=== PATIENT | male | born 1930 | race Caucasian/White ===

== ENCOUNTER 2016-05-30 14:26 | Emergency (ER) | payer MEDICARE ==
[~2016-05-30] VITALS: Ht 172.7 cm; Wt 91.0 kg
[~2016-05-30 14:26] MED LIST: ASPI81TA82 PO; CARV12.5 PO; CHLO10CA17 PO; DICL75 PO; ERGO50000 PO; EXTR500C PO; FLOV110A INH; LEVA500T PO; MECL-62 PO; METR-1 PO; PAXI20TA26 PO; RANT150EF PO; TRAM50 PO; ZOCO40TA PO
[2016-05-30 14:29] VITALS: BP 179/81; PULSE 82; RESP 15; TEMP 98.2; O2SAT 95
--- NOTE | 2016-05-30 15:13 | PD ---
HPI Chief Complaint: Edema Time Seen by Provider: 15:13 Travel History International Travel<30 days: No Contact w/Intl Traveler<30days: No Traveled to known affect area: No History of Present Illness HPI 86-year-old male with coronary artery disease, CHF, hypertension, arthritis, presents to emergency department for evaluation left upper extremity swelling. Patient states that initially health of his arms were swollen but the right one went down. The left foot continues to be swollen and last night he noticed that he wasn't feeling well. Arm felt kind of burning and he didn't feel quite himself. He states he's been more weak. He has been having a gradual worsening shortness of breath with activity. Denies any chest pain. Has not been febrile or chill. Denies a nausea, vomiting, diarrhea. Has no other symptoms to report. Patient does see a ell tutor at [facility]. He refers to him as "Spike" but cannot recall his last name. PFSH Past Medical History Arthritis: Yes Asthma: Yes Autoimmune Disease: No Blood Disorders: No Anxiety: Yes Depression: No Cancer: No High Cholesterol: Yes Chemotherapy: No Chest Pain: Yes (5 YEARS AGO) Diabetes: No Diminished Hearing: No Endocrine: No Gastrointestinal Disorders: Yes (INGUINAL HERNIA REPAIR IN 1975) Headaches: Yes (ARTHRITIC HEADACHE FOR MANY YEARS, 24 HOURS A DAY) Hypertension: Yes Immune Disorder: No Musculoskeletal: Yes Neurologic: No Radiation Therapy: No Past Surgical History Abdominal Surgery: Yes (GALLBLADDER REMOVED) Cholecystectomy: Yes Eye Surgery: Yes (BILAT CATARACTS) Neurologic Surgery: Yes Other Surgery: Yes Social History Alcohol Use: No Tobacco Use: No Substance Use: No Allergies-Medications (Allergen,Severity, Reaction): Coded Allergies: No Known Allergies (Verified , 05/30/16) Reported Meds & Prescriptions Reported Meds & Active Scripts Active Levaquin 500 Mg Tab (Levofloxacin) 500 Mg Tab 500 Mg PO DAILY Flagyl (Metronidazole) 500 Mg Tab 500 Mg PO Q8HR Reported Extra Strength Acetaminop (Acetaminophen) 500 Mg Cap 500 Mg PO QID PRN Flovent Hfa (Fluticasone Propionate) 110 Mcg Aer 1 Puff INH BID Vitamin D / Drisdol 50,000 Units (Ergocalciferol) 50,000 Units Cap 2 Cap PO Q7D Meclizine Hcl (Meclizine HCl) 25 Mg Tab 12.5 Mg PO DAILY Aspir-81 (Aspirin) 81 Mg Tab 81 Mg PO DAILY Diclofenac Sodium 75 Mg Tab 75 Mg PO NEEDED PRN Coreg 12.5 mg (Carvedilol) 12.5 Mg Tab 12.5 Mg PO BID Ultram (Tramadol HCl) 50 Mg Tab 50 Mg PO Q6HPRN FOR PAIN Librium (Chlordiazepoxide) 10 Mg Cap 20 Mg PO DAILY Zantac (Ranitidine HCl) 150 Mg Tab 150 Mg PO BID Zocor 40 mg (Simvastatin) 40 Mg Tab 40 Mg PO HS Paxil (Paroxetine HCl) 20 Mg Tab 20 Mg PO DAILY Review of Systems Except as stated in HPI: all other systems reviewed are Neg Physical Exam Narrative GENERAL: Well-nourished elderly male patient, in no acute distress SKIN: Warm and dry. HEAD: Atraumatic. Normocephalic. EYES: Pupils equal and round. No scleral icterus. No injection or drainage. ENT: No nasal bleeding or discharge. Mucous membranes pink and moist. NECK: Trachea midline. No JVD. CARDIOVASCULAR: Regular rate and rhythm. No murmur appreciated. RESPIRATORY: No accessory muscle use. Diminished, likely due to poor inspiratory effort. Breath sounds equal bilaterally. GASTROINTESTINAL: Abdomen soft, non-tender, nondistended. Hepatic and splenic margins not palpable. MUSCULOSKELETAL: No obvious deformities. No clubbing. No cyanosis. There is moderate edema of the left hand. The hand remained warm. Patient's rings are unable to be removed due to the swelling. Distal pulses are palpable. Cap refill is within normal limits. NEUROLOGICAL: Awake and alert. No obvious cranial nerve deficits. Motor grossly within normal limits. Normal speech. PSYCHIATRIC: Appropriate mood and affect; insight and judgment normal. Data Data Last Documented VS Vital Signs Date Time Temp Pulse Resp B/P Pulse Ox O2 Delivery O2 Flow Rate FiO2 05/30/16 18:45 67 173/77 96 05/30/16 18:23 20 Room Air 05/30/16 16:22 97.9 Orders Electrocardiogram (05/30/16 15:11) Basic Metabolic Panel (Bmp) (05/30/16 15:11) B-Type Natriuretic Peptide (05/30/16 15:11) Ckmb (Isoenzyme) Profile (05/30/16 15:11) Complete Blood Count With Diff (05/30/16 15:11) Magnesium (Mg) (05/30/16 15:11) Prothrombin Time / Inr (Pt) (05/30/16 15:11) Act Partial Throm Time (Ptt) (05/30/16 15:11) Troponin I (05/30/16 15:11) Chest, Single Ap (05/30/16 15:11) Us Arm Venous Doppler (05/30/16 ) Electrocardiogram (05/30/16 15:52) Labs Laboratory Tests Test 05/30/16 16:00 White Blood Count 7.1 TH/MM3 Red Blood Count 4.74 MIL/MM3 Hemoglobin 13.5 GM/DL Hematocrit 40.1 % Mean Corpuscular Volume 84.6 FL Mean Corpuscular Hemoglobin 28.4 PG Mean Corpuscular Hemoglobin 33.6 % Concent Red Cell Distribution Width 13.7 % Platelet Count 205 TH/MM3 Mean Platelet Volume 8.1 FL Neutrophils (%) (Auto) 75.5 % Lymphocytes (%) (Auto) 14.2 % Monocytes (%) (Auto) 7.5 % Eosinophils (%) (Auto) 2.4 % Basophils (%) (Auto) 0.4 % Neutrophils # (Auto) 5.4 TH/MM3 Lymphocytes # (Auto) 1.0 TH/MM3 Monocytes # (Auto) 0.5 TH/MM3 Eosinophils # (Auto) 0.2 TH/MM3 Basophils # (Auto) 0.0 TH/MM3 CBC Comment DIFF FINAL Differential Comment Prothrombin Time 11.4 SEC Prothromb Time International 1.0 RATIO Ratio Activated Partial 25.9 SEC Thromboplast Time Sodium Level 143 MEQ/L Potassium Level 3.7 MEQ/L Chloride Level 107 MEQ/L Carbon Dioxide Level 29.4 MEQ/L Anion Gap 7 MEQ/L Blood Urea Nitrogen 21 MG/DL Creatinine 0.87 MG/DL Estimat Glomerular Filtration 84 ML/MIN Rate Random Glucose 117 MG/DL Calcium Level 8.7 MG/DL Magnesium Level 2.1 MG/DL Total Creatine Kinase 63 U/L Troponin I LESS THAN 0.02 NG/ML B-Type Natriuretic Peptide 54 PG/ML MDM Medical Decision Making Medical Screen Exam Complete: Yes Emergency Medical Condition: Yes Medical Record Reviewed: Yes Differential Diagnosis DVT versus cellulitis versus lymphedema versus electrolyte abnormality Narrative Course 86-year-old male presents to emergency department for evaluation. Patient appears overall well without distress. He does have swelling of the left upper extremity, primarily in the hand. Workup is initiated in triage. With the medical bed becomes available, patient will be transferred and care assumed by that provider. Condition: Stable Lennie Farfan May 30, 2016 15:13
--- NOTE | 2016-05-30 15:33 | RADRPT ---
EXAM DATE/TIME: 05/30/2016 15:09 [facility] COMPARISON: CHEST SINGLE AP, October 06, 2014, 5:48. INDICATIONS : Short of breath, anterior chest discomfort, swollen left hand MEDICAL HISTORY : Congestive heart failure. kyphotic SURGICAL HISTORY : None. ENCOUNTER: Initial ACUITY: 2 days PAIN SCORE: 3/10 LOCATION: Bilateral chest FINDINGS: A single view of the chest demonstrates the lungs to be symmetrically aerated without evidence of mas s, infiltrate or effusion. The cardiomediastinal contours are unremarkable. Osseous structures are intact. Again noted is hypoaeration with mild compressive atelectasis in the bases. CONCLUSION: No acute disease. No significant change has occurred. Garrison Sumner MD on May 30, 2016 at 15:30 Board Certified Radiologist. This report was verified electronically.
[2016-05-30 16:22] VITALS: BP 165/74; PULSE 75; RESP 20; TEMP 97.9; O2SAT 94
[2016-05-30 16:37] LABS: AUTOMATED NEUTROPHIL # 5.4 TH/MM3 (1.8-7.7); BASOPHIL % 0.4 % (0.0-2.0); EOSINOPHIL # 0.2 TH/MM3 (0-0.4); EOSINOPHIL % 2.4 % (0.0-4.0); HEMATOCRIT 40.1 % (39.0-51.0); HEMO FLAGS DIFF FINAL; LYMPH % 14.2 % (9.0-44.0); MEAN CELL VOLUME 84.6 FL (80.0-100.0); MEAN CORPUSCULAR HEMOGLOBIN 28.4 PG (27.0-34.0); MEAN CORPUSCULAR HGB CONC 33.6 % (32.0-36.0); MONO % 7.5 % (0.0-8.0); NEUT % 75.5 % (16.0-70.0); PLATELET COUNT 205 TH/MM3 (150-450); RED BLOOD COUNT 4.74 MIL/MM3 (4.50-5.90); RED CELL DISTRIBUTION WIDTH 13.7 % (11.6-17.2); WHITE BLOOD COUNT 7.1 TH/MM3 (4.0-11.0)
[2016-05-30 16:48] LABS: APTT (PATIENT) 25.9 SEC (24.3-30.1); PROTHROMBIN TIME - PATIENT 11.4 SEC (9.8-11.6)
[2016-05-30 16:54] LABS: ANION GAP 7 MEQ/L (5-15); BICARBONATE 29.4 MEQ/L (21.0-32.0); BLOOD UREA NITROGEN 21 MG/DL (7-18); CHLORIDE 107 MEQ/L (98-107); GLOMERULAR FILTRATION RATE 84 ML/MIN (>89); MAGNESIUM 2.1 MG/DL (1.5-2.5); POTASSIUM 3.7 MEQ/L (3.5-5.1); SODIUM (NA) 143 MEQ/L (136-145)
[2016-05-30 16:59] LABS: CREATINE KINASE 63 U/L (39-308)
--- NOTE | 2016-05-30 16:59 | PD ---
Physical Exam Date Seen by Provider: May 30, 2016 Time Seen by Provider: 16:30 Narrative Patient was seen in triage and had preliminary evaluation performed by Lennie carson PA-C. Patient has had ongoing chronic swelling in the left hand off and on for approximately one month. Patient felt it was worse today and is had tightness in the rings on his pinky and ring finger. Patient denies chest pain , shortness of breath, or other constitutional symptoms. EKG was performed, as well as labs ordered including CBC, CMP, cardiac panel, proBNP and chest x-ray. Ultrasound of the left upper extremity is ordered as well. Patient is stable upon arrival to [facility]. Data Data Last Documented VS Vital Signs Date Time Temp Pulse Resp B/P Pulse Ox O2 Delivery O2 Flow Rate FiO2 05/30/16 18:45 67 173/77 96 05/30/16 18:23 20 Room Air 05/30/16 16:22 97.9 Orders Electrocardiogram (05/30/16 15:11) Basic Metabolic Panel (Bmp) (05/30/16 15:11) B-Type Natriuretic Peptide (05/30/16 15:11) Ckmb (Isoenzyme) Profile (05/30/16 15:11) Complete Blood Count With Diff (05/30/16 15:11) Magnesium (Mg) (05/30/16 15:11) Prothrombin Time / Inr (Pt) (05/30/16 15:11) Act Partial Throm Time (Ptt) (05/30/16 15:11) Troponin I (05/30/16 15:11) Chest, Single Ap (05/30/16 15:11) Us Arm Venous Doppler (05/30/16 ) Electrocardiogram (05/30/16 15:52) Ct Thorax/ Chest W Iv Contrast (05/30/16 21:04) Iohexol 350 Inj (Omnipaque 350 Inj) (05/30/16 21:31) Labs Laboratory Tests Test 05/30/16 16:00 White Blood Count 7.1 TH/MM3 Red Blood Count 4.74 MIL/MM3 Hemoglobin 13.5 GM/DL Hematocrit 40.1 % Mean Corpuscular Volume 84.6 FL Mean Corpuscular Hemoglobin 28.4 PG Mean Corpuscular Hemoglobin 33.6 % Concent Red Cell Distribution Width 13.7 % Platelet Count 205 TH/MM3 Mean Platelet Volume 8.1 FL Neutrophils (%) (Auto) 75.5 % Lymphocytes (%) (Auto) 14.2 % Monocytes (%) (Auto) 7.5 % Eosinophils (%) (Auto) 2.4 % Basophils (%) (Auto) 0.4 % Neutrophils # (Auto) 5.4 TH/MM3 Lymphocytes # (Auto) 1.0 TH/MM3 Monocytes # (Auto) 0.5 TH/MM3 Eosinophils # (Auto) 0.2 TH/MM3 Basophils # (Auto) 0.0 TH/MM3 CBC Comment DIFF FINAL Differential Comment Prothrombin Time 11.4 SEC Prothromb Time International 1.0 RATIO Ratio Activated Partial 25.9 SEC Thromboplast Time Sodium Level 143 MEQ/L Potassium Level 3.7 MEQ/L Chloride Level 107 MEQ/L Carbon Dioxide Level 29.4 MEQ/L Anion Gap 7 MEQ/L Blood Urea Nitrogen 21 MG/DL Creatinine 0.87 MG/DL Estimat Glomerular Filtration 84 ML/MIN Rate Random Glucose 117 MG/DL Calcium Level 8.7 MG/DL Magnesium Level 2.1 MG/DL Total Creatine Kinase 63 U/L Troponin I LESS THAN 0.02 NG/ML B-Type Natriuretic Peptide 54 PG/ML [facility] Medical Record Reviewed: Yes Supervised Visit with MACIEJ: Yes Differential Diagnosis Left upper extremity swelling. Possible DVT. Possible SVC. Narrative Course Patient is stable upon exam. Rings are removed from the left hand with ring cutter 2. This is performed without incident. Rings are given to the patient's daughter for safe keeping. EKG shows no acute changes. Chest x-ray shows no acute changes compared to previous. CBC is unremarkable. CMP shows normal electrolytes. Creatinine of 0.87. BUN was 21. Troponin less than 0.02. BNP is 54. Coags are normal with a PT of 11.4. INR 1.0. PTT 25.9. Patient discussed with Dr. Wong and seen with him as well. Ultrasound of the left upper extremity. Left arm ultrasound is unremarkable for acute process per radiology. Patient was discussed with Dr. Wong, who recommended a CT to verify no tumor or outlet syndrome. Chest CT is negative for any type of impingement to the subclavian artery or vein. All labs, ultrasound, and CT are negative for causes of the swelling in the left arm. Patient is recommended to follow with his primary care physician next several days to follow-up on the left arm swelling and possible causes. Patient may return to emergency Department with any worsening symptoms as needed. Diagnosis Primary Impression: Left arm swelling Referrals: Primary Care Physician Patient Instructions: Edema (ED), General Instructions Additional Instruction: All labs, ultrasound, and CT are negative for causes of the swelling in the left arm. Patient is recommended to follow with his primary care physician next several days to follow-up on the left arm swelling and possible causes. Patient may return to emergency Department with any worsening symptoms as needed. Disposition: 01 DISCHARGE HOME Condition: Stable Segundo Ace May 30, 2016 16:59
[2016-05-30 18:23] VITALS: BP 184/87; PULSE 68; RESP 20; O2SAT 95
[2016-05-30 18:45] VITALS: BP 173/77; PULSE 67; O2SAT 96
--- NOTE | 2016-05-30 19:49 | PD ---
Data Data Last Documented VS Vital Signs Date Time Temp Pulse Resp B/P Pulse Ox O2 Delivery O2 Flow Rate FiO2 05/30/16 18:45 67 173/77 96 05/30/16 18:23 20 Room Air 05/30/16 16:22 97.9 Orders Electrocardiogram (05/30/16 15:11) Basic Metabolic Panel (Bmp) (05/30/16 15:11) B-Type Natriuretic Peptide (05/30/16 15:11) Ckmb (Isoenzyme) Profile (05/30/16 15:11) Complete Blood Count With Diff (05/30/16 15:11) Magnesium (Mg) (05/30/16 15:11) Prothrombin Time / Inr (Pt) (05/30/16 15:11) Act Partial Throm Time (Ptt) (05/30/16 15:11) Troponin I (05/30/16 15:11) Chest, Single Ap (05/30/16 15:11) Us Arm Venous Doppler (05/30/16 ) Electrocardiogram (05/30/16 15:52) Labs Laboratory Tests Test 05/30/16 16:00 White Blood Count 7.1 TH/MM3 Red Blood Count 4.74 MIL/MM3 Hemoglobin 13.5 GM/DL Hematocrit 40.1 % Mean Corpuscular Volume 84.6 FL Mean Corpuscular Hemoglobin 28.4 PG Mean Corpuscular Hemoglobin 33.6 % Concent Red Cell Distribution Width 13.7 % Platelet Count 205 TH/MM3 Mean Platelet Volume 8.1 FL Neutrophils (%) (Auto) 75.5 % Lymphocytes (%) (Auto) 14.2 % Monocytes (%) (Auto) 7.5 % Eosinophils (%) (Auto) 2.4 % Basophils (%) (Auto) 0.4 % Neutrophils # (Auto) 5.4 TH/MM3 Lymphocytes # (Auto) 1.0 TH/MM3 Monocytes # (Auto) 0.5 TH/MM3 Eosinophils # (Auto) 0.2 TH/MM3 Basophils # (Auto) 0.0 TH/MM3 CBC Comment DIFF FINAL Differential Comment Prothrombin Time 11.4 SEC Prothromb Time International 1.0 RATIO Ratio Activated Partial 25.9 SEC Thromboplast Time Sodium Level 143 MEQ/L Potassium Level 3.7 MEQ/L Chloride Level 107 MEQ/L Carbon Dioxide Level 29.4 MEQ/L Anion Gap 7 MEQ/L Blood Urea Nitrogen 21 MG/DL Creatinine 0.87 MG/DL Estimat Glomerular Filtration 84 ML/MIN Rate Random Glucose 117 MG/DL Calcium Level 8.7 MG/DL Magnesium Level 2.1 MG/DL Total Creatine Kinase 63 U/L Troponin I LESS THAN 0.02 NG/ML B-Type Natriuretic Peptide 54 PG/ML [facility] Supervised Visit with MACIEJ: Yes Narrative Course I, Dr. Wong, have reviewed the advance practice practitioner's documentation and am in agreement, met with the patient face to face, made the diagnosis, and the medical decision making was done by me. See his note for further details. Briefly this is an 86-year-old male who presents for evaluation of left arm swelling for 2 weeks. Patient had intermittent right arm swelling which has resolved. Today he was unable to take the ring off of his left hand and noticed even more left hand swelling. He is having some mild pain in the arm. No chest pain or dyspnea. No history of DVT or PE. No known history of any cancer. Chest x-ray shows no acute disease. There are no signs of infection on physical exam. Distal pulses are brisk and equal bilaterally. All compartments in the left upper extremity are soft. Left upper extremity ultrasound ordered to rule out DVT. Condition: Stable Jean Wong MD May 30, 2016 19:49
--- NOTE | 2016-05-30 20:47 | RADRPT ---
EXAM DATE/TIME: 05/30/2016 19:10 [facility] COMPARISON: No previous studies available for comparison. INDICATIONS : Left hand swelling. MEDICAL HISTORY : Hypercholesterolemia. Hypertension. Headaches. Chest pain. Asthma. Diarrhea. Arthritis. Anxiety. SURGICAL HISTORY : Cholecystectomy. Inguinal hernia repair. Right hip replacement. Bilateral cataract removal. ENCOUNTER: Initial ACUITY: 4 - 6 days PAIN SCORE: 0/10 LOCATION: Left arm. FINDINGS: There is spontaneous flow documented in the brachial, basilic, cephalic, axillary, and subclavian vei ns. The vessels are compressible and augmentation response is documented. No filling defects are se en. The flow is phasic with respiration. Direction of flow in the jugular vein is caudal. CONCLUSION: Normal examination. Piyush Sin MD on May 30, 2016 at 20:44 Board Certified Radiologist. This report was verified electronically.
[2016-05-30] MEDS ORDERED: IOHEXOL 350 MG/ML 10 ML VIAL (for RAD DIAG) IV ONE (21:31)
--- NOTE | 2016-05-30 22:16 | RADRPT ---
EXAM DATE/TIME: 05/30/2016 21:28 [facility] COMPARISON: No previous studies available for comparison. INDICATIONS : Left arm swelling. Rule out thoracic outlet syndrome. IV CONTRAST: 67 cc Omnipaque 350 (iohexol) IV RADIATION DOSE: 8.25 CTDIvol (mGy) MEDICAL HISTORY : Arthritis. Hypercholesterolemia. SURGICAL HISTORY : Cholecystectomy. Inguinal hernia repair.Right hip replacement. ENCOUNTER: Initial ACUITY: 1 day PAIN SCALE: 3/10 LOCATION: Left arm and chest TECHNIQUE: Volumetric scanning of the chest was performed. Using automated exposure control and adjustment of t he mA and/or kV according to patient size, radiation dose was kept as low as reasonably achievable to obtain optimal diagnostic quality images. FINDINGS: There is some atelectasis or scarring at the right lung base. Calcified hilar lymph nodes are present on the right. Minimal linear parenchymal scarring also present at the bases. No pleural or pericardi al effusion. No hilar, mediastinal or axillary adenopathy. On CT no impingement on the subclavian artery or vein is identified. No acute bony abnormalities. CONCLUSION: 1. No impingement identified on the subclavian artery or vein. Remote granulomatous disease. Atelecta sis and scarring at the lung bases. Piyush Sin MD on May 30, 2016 at 22:10 Board Certified Radiologist. This report was verified electronically.
--- NOTE | 2016-05-31 14:25 | EKG ---
Date Performed: 05/30/2016 Time Performed: 15:52:25 PTAGE: 86 years EKG: Sinus rhythm WITH OCCASIONAL SUPRAVENTRICULAR PREMATURE COMPLEXES MODERATE INTRAVENTRICULAR CONDUCTION DELAY Nons pecific T wave flattening Compared to the previous tracing, the PVCs have resolved but there is othe rwise no significant serial change BORDERLINE ECG PREVIOUS TRACING : 05/30/2016 15.52 DOCTOR: Mali Avila Interpretating Date/Time 05/31/2016 14:25:26
--- NOTE | 2016-05-31 14:25 | EKG ---
Date Performed: 05/30/2016 Time Performed: 15:51:43 PTAGE: 86 years EKG: Sinus rhythm WITH FREQUENT VENTRICULAR PREMATURE COMPLEXES MODERATE INTRAVENTRICULAR CONDUCTION DELAY Nonspecific T wave changes Compared to the previous tracing, PVCs are new. There has been some variation of a n onspecific T wave changes. ABNORMAL RHYTHM ECG PREVIOUS TRACING : 10/06/2014 04.51 DOCTOR: Mali Avila Interpretating Date/Time 05/31/2016 14:24:52
== END 2016-05-30 23:12 | disposition home or self-care (01) ==
LOC: NEPC 14:26
DX: M79.89 Other specified soft tissue disorders (principal); I10 Essential (primary) hypertension; E78.00 Pure hypercholesterolemia, unspecified; I50.9 Heart failure, unspecified; I49.3 Ventricular premature depolarization
CPT/HCPCS: 71010; 71260; 80048; 82550; 83735; 83880; 84484; 85025; 85610; 85730; 93005; 93971; 99285; Q9967

== ENCOUNTER 2017-03-10 01:10 | Emergency (ER) | payer MEDICARE ==
[~2017-03-10] VITALS: Ht 172.7 cm; Wt 95.1 kg
[2017-03-10 01:15] VITALS: BP 144/72; PULSE 94; RESP 24; TEMP 97.8; O2SAT 95
[2017-03-10 01:50] VITALS: BP 193/98; PULSE 93; RESP 20; O2SAT 95
[2017-03-10 02:20] VITALS: BP 176/82; PULSE 80; RESP 20; O2SAT 96
--- NOTE | 2017-03-10 02:23 | PD ---
HPI Chief Complaint: Chest Pain Time Seen by Provider: 02:19 Travel History International Travel<30 days: No Contact w/Intl Traveler<30days: No Traveled to known affect area: No History of Present Illness HPI The patient is an 87-year-old male that ate some spicy barbecue food tonight and then began feeling pain in his abdomen. He started belching and the pain got slightly worse but I'll only 1 away. The abdominal pain never went up into the chest. It started at about 8 PM tonight. He had slight nausea without vomiting. He does have a history of congestive heart failure and heart disease. He is a [facility] patient of Dr. Kvng cortez. FOR[facility]LY [facility], LATER [facility] Past Medical History Arthritis: Yes Asthma: Yes Autoimmune Disease: No Blood Disorders: No Anxiety: Yes Depression: No Cancer: No High Cholesterol: Yes Chemotherapy: No Chest Pain: Yes (5 YEARS AGO) Diabetes: No Diminished Hearing: No Endocrine: No Gastrointestinal Disorders: Yes (INGUINAL HERNIA REPAIR IN 1975) Headaches: Yes Hypertension: Yes Immune Disorder: No Musculoskeletal: Yes Neurologic: No Radiation Therapy: No Past Surgical History Abdominal Surgery: Yes (GALLBLADDER REMOVED) Cholecystectomy: Yes Eye Surgery: Yes (BILAT CATARACTS) Joint Replacement: Yes (RT HIP REPLACEMENT 1995) Neurologic Surgery: Yes Other Surgery: Yes Social History Alcohol Use: No Tobacco Use: No Substance Use: No Allergies-Medications (Allergen,Severity, Reaction): Coded Allergies: No Known Allergies (Verified Adverse Reaction, Unknown, 03/10/17) Reported Meds & Prescriptions Reported Meds & Active Scripts Active Reported Simvastatin 40 Mg Tab 40 Mg PO HS Zantac (Ranitidine HCl) 150 Mg Tab 150 Mg PO BID Paxil (Paroxetine HCl) 10 Mg Tab 20 Mg PO DAILY Diclofenac Sodium DR (Diclofenac Sodium) 75 Mg Tabdr 75 Mg PO DAILY Meclizine 25 (Meclizine HCl) 25 Mg Tab 25 Mg PO DAILY Flovent Hfa 10.6 GM Inh (Fluticasone Propionate) 44 Mcg/Act Inh 2 Puff INH BID Use daily at the same time. Ultram (Tramadol HCl) 50 Mg Tab 50 Mg PO BID PRN Chlordiazepoxide HCl 10 Mg Capsule 10 Mg PO DAILY Coreg (Carvedilol) 12.5 Mg Tab 12.5 Mg PO BID Aspirin Low Dose (Aspirin) 81 Mg Chew 81 Mg CHEW DAILY Review of Systems Except as stated in HPI: all other systems reviewed are Neg Physical Exam Narrative GENERAL: The patient is alert, oriented 3 in no apparent distress. His vital signs show initial blood pressure 144/72 with respirations 24 and otherwise are normal. SKIN: Focused skin assessment warm/dry. HEAD: Atraumatic. Normocephalic. EYES: Pupils equal and round. No scleral icterus. No injection or drainage. ENT: No nasal bleeding or discharge. Mucous membranes pink and moist. NECK: Trachea midline. No JVD. CARDIOVASCULAR: Regular rate and rhythm except for occasional PVC. No murmur appreciated. RESPIRATORY: No accessory muscle use. Clear to auscultation. Breath sounds equal bilaterally. GASTROINTESTINAL: Abdomen soft, non-tender, nondistended. Hepatic and splenic margins not palpable. No guarding or rebound is present. MUSCULOSKELETAL: No obvious deformities. No clubbing. No cyanosis. No edema. NEUROLOGICAL: Awake and alert. No obvious cranial nerve deficits. Motor grossly within normal limits. Normal speech. PSYCHIATRIC: Appropriate mood and affect; insight and judgment normal. Data Data Last Documented VS Vital Signs Date Time Temp Pulse Resp B/P (MAP) Pulse Ox O2 Delivery O2 Flow Rate FiO2 03/10/17 03:24 82 20 163/86 (111) 96 Nasal Cannula 2.00 03/10/17 01:15 97.8 Orders Orders Complete Blood Count With Diff (03/10/17 02:19) Comprehensive Metabolic Panel (03/10/17 02:19) Lipase (03/10/17 02:19) Urinalysis - C+S If Indicated (03/10/17 02:19) Iv Access Insert/Monitor (03/10/17 02:19) Ecg Monitoring (03/10/17 02:19) Oximetry (03/10/17 02:19) Pantoprazole Inj (Protonix Inj) (03/10/17 02:30) Sodium Chloride 0.9% Flush (Ns Flush) (03/10/17 02:30) Famotidine Inj (Pepcid Inj) (03/10/17 02:30) Troponin I (03/10/17 02:19) Labs Laboratory Tests Test 03/10/17 02:25 03/10/17 02:45 White Blood Count 8.3 TH/MM3 Red Blood Count 4.80 MIL/MM3 Hemoglobin 13.8 GM/DL Hematocrit 40.5 % Mean Corpuscular Volume 84.5 FL Mean Corpuscular Hemoglobin 28.8 PG Mean Corpuscular Hemoglobin Concent 34.1 % Red Cell Distribution Width 13.4 % Platelet Count 175 TH/MM3 Mean Platelet Volume 8.1 FL Neutrophils (%) (Auto) 84.1 % Lymphocytes (%) (Auto) 9.2 % Monocytes (%) (Auto) 4.5 % Eosinophils (%) (Auto) 1.8 % Basophils (%) (Auto) 0.4 % Neutrophils # (Auto) 7.0 TH/MM3 Lymphocytes # (Auto) 0.8 TH/MM3 Monocytes # (Auto) 0.4 TH/MM3 Eosinophils # (Auto) 0.1 TH/MM3 Basophils # (Auto) 0.0 TH/MM3 CBC Comment DIFF FINAL Differential Comment Blood Urea Nitrogen 16 MG/DL Creatinine 1.10 MG/DL Random Glucose 125 MG/DL Total Protein 6.7 GM/DL Albumin 3.3 GM/DL Calcium Level 8.5 MG/DL Alkaline Phosphatase 113 U/L Aspartate Amino Transf (AST/SGOT) 20 U/L Alanine Aminotransferase (ALT/SGPT) 35 U/L Total Bilirubin 0.5 MG/DL Sodium Level 141 MEQ/L Potassium Level 3.8 MEQ/L Chloride Level 104 MEQ/L Carbon Dioxide Level 30.3 MEQ/L Anion Gap 7 MEQ/L Estimat Glomerular Filtration Rate 64 ML/MIN Troponin I LESS THAN 0.02 NG/ML Lipase 145 U/L Urine Color YELLOW Urine Turbidity CLEAR Urine pH 7.0 Urine Specific [place] 1.010 Urine Protein NEG mg/dL Urine Glucose (UA) NEG mg/dL Urine Ketones NEG mg/dL Urine Occult Blood SMALL Urine Nitrite NEG Urine Bilirubin NEG Urine Leukocyte Esterase NEG Urine RBC 4-9 /hpf Urine WBC 0-2 /hpf Urine Squamous Epithelial Cells 0-5 /hpf Urine Bacteria NONE /hpf Microscopic Urinalysis Comment CULT NOT INDICATED MDM Medical Decision Making Medical Screen Exam Complete: Yes Emergency Medical Condition: Yes Medical Record Reviewed: Yes Interpretation(s) The EKG shows sinus rhythm with a rate of 87 and occasional supraventricular premature complexes and ventricular premature complexes. The CBC is normal except for 84% neutrophils. The complete metabolic profile shows a GFR 64, glucose 125 and albumin 3.3 but is otherwise normal. The lipase is normal. The troponin I is normal. Urinalysis shows small occult blood with 4-9 red cells but is otherwise normal and culture is not indicated. Differential Diagnosis Acute coronary syndrome-unlikely, reflux esophagitis, ulcer pain, pancreatitis Narrative Course The patient appears to have reflux esophagitis. The pain is suggestive of reflux esophagitis and never reached the chest. Plan: The patient is given prescriptions for omeprazole and Zantac. Diagnosis Primary Impression: Reflux esophagitis Additional Instructions: Take the ranitidine twice daily as you have been. The omeprazole is taken once daily. Follow-up with your primary care physician. Elevate the head of your bed slightly so that the acid in her stomach has an appeal climbed to the esophagus. Med/Other Pt SpecificInfo: Prescription(s) given Scripts Ranitidine (Zantac) 150 Mg Tab 150 MG PO BID for Reduce Stomach Acid, #60 TAB 0 Refills Prov: José Miguel Mei MD 03/10/17 Omeprazole (Omeprazole) 20 Mg Tab 20 MG PO DAILY, #30 TAB 0 Refills Prov: José Miguel Mei MD 03/10/17 Disposition: 01 DISCHARGE HOME Condition: Stable José Miguel Mei MD Mar 10, 2017 02:23
[2017-03-10] MEDS ORDERED: ZANT150T2 PO ×2 (02:28→03:52)
[2017-03-10] MEDS ORDERED: PAXI10TA8 PO (02:28)
[2017-03-10] MEDS ORDERED: CHLO10CA5 PO (02:28)
[2017-03-10] MEDS ORDERED: ASPI81CH6 CHEW (02:28)
[2017-03-10] MEDS ORDERED: DICL75TA PO (02:28)
[2017-03-10] MEDS ORDERED: SIMV40TA PO (02:28)
[2017-03-10] MEDS ORDERED: TRAM50 PO (02:28)
[2017-03-10] MEDS ORDERED: CARV12.5 PO (02:28)
[2017-03-10] MEDS ORDERED: MECL1TAB42 PO (02:28)
[2017-03-10] MEDS ORDERED: FLUTI44I INH (02:28)
[2017-03-10] MEDS ORDERED: FAMOTIDINE 20 MG/2 ML VIAL IV PUSH ONE (02:30)
[2017-03-10] MEDS ORDERED: PANTOPRAZOLE SODIUM 40 MG VIAL IVP ONE (02:30)
[2017-03-10] MEDS ORDERED: SODIUM CHLORIDE 0.9% FLUSH 10 ML FLUSH IV FLUSH PRN (02:30)
[2017-03-10 02:39] LABS: BASOPHIL % 0.4 % (0.0-2.0); EOSINOPHIL # 0.1 TH/MM3 (0-0.4); EOSINOPHIL % 1.8 % (0.0-4.0); HEMATOCRIT 40.5 % (39.0-51.0); HEMO FLAGS DIFF FINAL; LYMPH % 9.2 % (9.0-44.0); LYMPHOCYTE # 0.8 TH/MM3 (1.0-4.8); MEAN CELL VOLUME 84.5 FL (80.0-100.0); MEAN CORPUSCULAR HEMOGLOBIN 28.8 PG (27.0-34.0); MEAN CORPUSCULAR HGB CONC 34.1 % (32.0-36.0); MONO % 4.5 % (0.0-8.0); NEUT % 84.1 % (16.0-70.0); PLATELET COUNT 175 TH/MM3 (150-450); RED CELL DISTRIBUTION WIDTH 13.4 % (11.6-17.2); WHITE BLOOD COUNT 8.3 TH/MM3 (4.0-11.0)
[2017-03-10 02:47] LABS: CHLORIDE 104 MEQ/L (98-107); POTASSIUM 3.8 MEQ/L (3.5-5.1); SODIUM (NA) 141 MEQ/L (136-145)
[2017-03-10 02:49] LABS: BLOOD, URINE SMALL (NEG); GLUCOSE,URINE NEG (NEG); KETONE, URINE NEG (NEG); NITRITE,URINE NEG (NEG)
[2017-03-10 02:51] LABS: ANION GAP 7 MEQ/L (5-15); BICARBONATE 30.3 MEQ/L (21.0-32.0)
[2017-03-10 02:52] LABS: BLOOD UREA NITROGEN 16 MG/DL (7-18)
[2017-03-10 02:54] LABS: ALT (GPT) 35 U/L (12-78); AST (GOT) 20 U/L (15-37)
[2017-03-10 02:55] LABS: GLOMERULAR FILTRATION RATE 64 ML/MIN (>89)
[2017-03-10 02:56] LABS: TOTAL BILIRUBIN ADULT 0.5 MG/DL (0.2-1.0)
[2017-03-10 02:57] LABS: ALKALINE PHOSPHATASE 113 U/L (45-117)
[2017-03-10 02:57] LABS: URINE COLOR YELLOW (YELLW/STRAW)
[2017-03-10 02:58] LABS: COMMENT (UR) CULT NOT INDICATED; CULTURE IF INDICATED CULT NOT INDICATED; SQUAMOUS EPITHELIAL CELL URINE 0-5 /hpf (0-5); WBC, URINE 0-2 /hpf (0-5)
[2017-03-10 03:24] VITALS: BP 163/86; PULSE 82; RESP 20; O2SAT 96
[2017-03-10] MEDS ORDERED: OMEP20TA93 PO (03:52)
[2017-03-10 04:17] VITALS: BP 158/74
--- NOTE | 2017-03-10 18:07 | EKG ---
Date Performed: 03/10/2017 Time Performed: 02:06:43 PTAGE: 87 years EKG: Sinus rhythm . VENTRICULAR PREMATURE COMPLEXES WITH OCCASIONAL SUPRAVENTRICULAR PREMATURE COMPLEXES ABNORMAL ECG NO PREVIOUS TRACING DOCTOR: Malia Chase Interpretating Date/Time 03/10/2017 18:05:55
== END 2017-03-10 04:20 | disposition home or self-care (01) ==
LOC: PHED 01:10
DX: K21.0 Gastro-esophageal reflux disease with esophagitis (principal); R11.0 Nausea; R94.31 Abnormal electrocardiogram [ECG] [EKG]; I10 Essential (primary) hypertension; E78.00 Pure hypercholesterolemia, unspecified; Z86.79 Personal history of other diseases of the circulatory system; Z87.39 Personal history of other diseases of the musculoskeletal system and connective tissue; Z87.09 Personal history of other diseases of the respiratory system; Z86.59 Personal history of other mental and behavioral disorders; Z87.19 Personal history of other diseases of the digestive system
CPT/HCPCS: 80053; 81001; 83690; 84484; 85025; 93005; 96361; 96374; 96375; 99284; C9113

== ENCOUNTER 2017-05-27 20:28 | Emergency (ER) | payer MEDICARE ==
[~2017-05-27] VITALS: Ht 172.7 cm; Wt 90.4 kg
[~2017-05-27 20:28] MED LIST changes: +ASPI81CH6 CHEW; -ASPI81TA82 PO; -CHLO10CA17 PO; +CHLO10CA5 PO; -DICL75 PO; +DICL75TA PO; -ERGO50000 PO; -EXTR500C PO; -FLOV110A INH; +FLUTI44I INH; -LEVA500T PO; -MECL-62 PO; +MECL1TAB42 PO; -METR-1 PO; +OMEP20TA93 PO; +PAXI10TA8 PO; -PAXI20TA26 PO; -RANT150EF PO; +SIMV40TA PO; +ZANT150T2 PO; -ZOCO40TA PO
[2017-05-27 20:30] VITALS: BP 149/67; PULSE 84; RESP 22; TEMP 98.3; O2SAT 96
[2017-05-27] MEDS ORDERED: GABA300C5 PO (20:51)
[2017-05-27] MEDS ORDERED: LISI-515 PO (20:51)
[2017-05-27] MEDS ORDERED: TRAM50TA PO (21:45)
[2017-05-27] MEDS ORDERED: PRED50 PO (21:45)
[2017-05-27] MEDS ORDERED: ACYC-101 PO (21:45)
--- NOTE | 2017-05-27 21:47 | PD ---
HPI Chief Complaint: Skin Problem Time Seen by Provider: 21:37 Travel History International Travel<30 days: No Contact w/Intl Traveler<30days: No Traveled to known affect area: No History of Present Illness HPI The patient is an 87-year-old male that noticed a rash today consistent with shingles. It is around T11 and goes on the left side from back to front not crossing midline. He states the rash is painful. He states that he has had the shingles vaccination 2 years ago. He denies any fever, cough or shortness of breath this time. He does have a history of COPD. He has taken tramadol in the past with good results. PFSH Past Medical History Arthritis: Yes Asthma: Yes Autoimmune Disease: No Blood Disorders: No Anxiety: Yes Depression: No Cancer: No Cardiovascular Problems: Yes (CHF) High Cholesterol: Yes Chemotherapy: No Chest Pain: Yes (5 YEARS AGO) Diabetes: No Diminished Hearing: No Endocrine: No Gastrointestinal Disorders: Yes (INGUINAL HERNIA REPAIR IN 1975) Headaches: Yes Hypertension: Yes Immune Disorder: No Musculoskeletal: Yes Neurologic: No Respiratory: Yes (CPAP at night ) Radiation Therapy: No Tetanus Vaccination: < 5 Years Influenza Vaccination: Yes Past Surgical History Abdominal Surgery: Yes (GALLBLADDER REMOVED) Cholecystectomy: Yes Eye Surgery: Yes (BILAT CATARACTS) Joint Replacement: Yes (RT HIP REPLACEMENT 1995) Neurologic Surgery: Yes Other Surgery: Yes Social History Alcohol Use: No Tobacco Use: No Substance Use: No Allergies-Medications (Allergen,Severity, Reaction): Coded Allergies: No Known Allergies (Verified Adverse Reaction, Unknown, 05/27/17) Reported Meds & Prescriptions Reported Meds & Active Scripts Active Zantac (Ranitidine HCl) 150 Mg Tab 150 Mg PO BID Reported Lisinopril 20 Mg Tab 20 Mg PO DAILY Paxil (Paroxetine HCl) 10 Mg Tab 20 Mg PO DAILY Diclofenac Sodium DR (Diclofenac Sodium) 75 Mg Tabdr 75 Mg PO DAILY Ultram (Tramadol HCl) 50 Mg Tab 50 Mg PO BID PRN Gabapentin 300 Mg Cap 300 Mg PO TID Review of Systems Except as stated in HPI: all other systems reviewed are Neg Physical Exam Narrative GENERAL: Well-nourished, well-developed, elderly, alert and oriented patient in moderate apparent distress with his shingles discomfort. His vital signs show blood pressure 149/67 but otherwise normal. SKIN: Focused skin assessment warm/dry. There is an erythematous, macular/ papular rash with a few vesicles consistent with herpes zoster located at approximately the left T11 dermatome. HEAD: Normocephalic. EYES: No scleral icterus. No injection or drainage. NECK: Supple, trachea midline. No JVD or lymphadenopathy. CARDIOVASCULAR: Regular rate and rhythm without murmurs, gallops, or rubs. RESPIRATORY: Breath sounds equal bilaterally. No accessory muscle use. GASTROINTESTINAL: Abdomen soft, non-tender, nondistended. MUSCULOSKELETAL: No cyanosis, or edema. BACK: Nontender without obvious deformity. No CVA tenderness. Data Data Last Documented VS Vital Signs Date Time Temp Pulse Resp B/P (MAP) Pulse Ox O2 Delivery O2 Flow Rate FiO2 05/27/17 20:30 98.3 84 22 149/67 (94) 96 MDM Medical Decision Making Medical Screen Exam Complete: Yes Emergency Medical Condition: Yes Medical Record Reviewed: Yes Differential Diagnosis Herpes zoster, allergic reaction-unlikely Narrative Course The patient has a herpes zoster rash. Almost nothing else is consistent with this rash except herpes zoster. Plan: The patient will given prednisone for 6 days along with Zovirax. He will get tramadol for pain. Diagnosis Primary Impression: Herpes zoster Additional Instructions: The prednisone is one tablet daily for 5 days. The tramadol is one tablet every 4 hours as needed for pain. The Zovirax is one tablet 5 times daily for 7 days. Follow-up with your primary care physician Med/Other Pt SpecificInfo: Prescription(s) given Scripts Tramadol (Tramadol) 50 Mg Tab 50 MG PO Q4H Y for PAIN, #36 TAB 0 Refills Prov: José Miguel Mei MD 05/27/17 Acyclovir (Zovirax) 800 Mg Tab 800 MG PO 5 TIMES A DAY for Mgmt Viral Infection for 7 Days, TAB 0 Refills Prov: José Miguel Mei MD 05/27/17 Prednisone (Prednisone) 50 Mg Tab 50 MG PO DAILY for 5 Days, #5 TAB 0 Refills Prov: José Miguel Mei MD 05/27/17 Disposition: 01 DISCHARGE HOME Condition: Stable José Miguel Mei MD May 27, 2017 21:46
[2017-05-27] MEDS ORDERED: predniSONE 20 MG TAB PO ONE (22:00)
[2017-05-27] MEDS ORDERED: ACYCLOVIR 800 MG TAB PO ONE (22:00)
== END 2017-05-27 22:24 | disposition home or self-care (01) ==
LOC: PHEFT 20:28
DX: B02.9 Zoster without complications (principal); I11.0 Hypertensive heart disease with heart failure; I50.9 Heart failure, unspecified; E78.00 Pure hypercholesterolemia, unspecified; J44.9 Chronic obstructive pulmonary disease, unspecified; F41.9 Anxiety disorder, unspecified
CPT/HCPCS: 99284; J7512

== ENCOUNTER 2017-12-07 19:53 | Observation (INO) ==
[2017-12-07 20:08] VITALS: RESP 18
--- NOTE | 2017-12-07 21:21 | ED ---
HPI General Chief Complaint: Fall Stated Complaint: Fall/ Time Seen by Provider: 12/07/17 20:38 Source: patient and family Mode of arrival: ambulatory Limitations: no limitations History of Present Illness HPI narrative: 87-year-old male who presents after a possible syncopal event that occurred at 1900 today. His daughter witnessed him fall backwards without tripping while standing in the grass shortly after he exited the backseat of a car. Although there was no loss of consciousness immediately after the fall the patient does not remember any of the events leading up to the fall or the fall itself. After being helped up off the ground he walked into the house with minimal assistance although his daughter notes that his gait was somewhat unstable at that time. He sat in a chair for about half an hour to 45 minutes and his daughter notes that he exhibited short-term memory loss as well as repetitive questioning. Patient denies any pain; no chest pain no neck or back pain and no pain in his joints or extremities. He describes having a chronic daily headache that has been present for the past 20 years however it is not worse than usual at this time. He sustained a superficial skin tear of the left olecranon. He has a history of congestive heart failure but neither he nor his family know his last ejection fraction. He is compliant with his medications. However he notes that he took double his typical dose of meclizine (25 mg rather than 12.5 mg) both yesterday and today. Patient denies any sensation of dizziness or vertigo either at the time of the fall or now. Family did not observe any signs or symptoms of stroke; no slurred speech, no facial droop, no unilateral arm or leg weakness, no numbness or tingling in extremities, no trouble swallowing. There was no seizure activity observed. complaint: loss of consciousness Related Data Home Medications Medication Instructions Recorded Confirmed meclizine 25 mg PO DAILY PRN 12/07/17 12/07/17 tramadol 50 mg PO QID 12/07/17 12/07/17 Allergies Allergy/AdvReac Type Severity Reaction Status Date / Time No Known Allergies Allergy Verified 12/07/17 20:02 Review of Systems ROS: all other systems reviewed are negative ENT Denies vertigo and Denies neck pain Cardiovascular Denies chest pain, Denies palpitations and Denies dyspnea on exertion Respiratory Denies hemoptysis and Denies dyspnea Gastrointestinal Denies nausea and Denies vomiting Genitourinary Denies difficulty urinating and Denies urinary incontinence Musculoskeletal Reports abnormal gait and Denies back pain Integumentary/Breasts Comments: Skin tear, shingles rash Neurologic Denies vertigo, Reports syncope, Reports headache(s) and Reports lack of coordination [facility] Medical History Medical History Arthritis (Acute) High cholesterol (Acute) Hypertension (Acute) Vertigo (Acute) Surgical History Surgical History Hx of cholecystectomy (Acute) Hx of tonsillectomy (Acute) Social History Social History Substance History: No History of Abuse Second Hand Smoke Exposure: No Smoking Status: Never smoker How Often Do You Have a Drink Containing Alcohol: Monthly or less Recent Travel in [facility] within the Last 8 Weeks: No Recent Out of Country Travel within the Last 8 Weeks: No Immunization History Tetanus Immunization: <5 Years Hx Influenza Vaccine This Season: Yes Exam Narrative Exam Narrative: GENERAL: 87-year-old male resting peacefully on stretcher reclining at approximately 35 angle, family members at bedside (including daughter and grandson) SKIN: Focused skin assessment warm/dry. Superficial skin tear overlying left olecranon. Not amendable to primary repair. No gross contamination or foreign bodies in wound. Dressed with Tegaderm bandage. HEAD: Atraumatic. Normocephalic. No trauma visible above the level the clavicles. EYES: Pupils equal and round. No scleral icterus. No injection or drainage. No nystagmus. ENT: No nasal bleeding or discharge. Mucous membranes pink and moist. Normal tympanic membranes bilaterally with no rupture or hemotympanum. No clear bloody drainage from either ear. NECK: Trachea midline. No JVD. No midline cervical tenderness able to rotate neck greater than 60 left and right. CARDIOVASCULAR: Regular rate and rhythm. No murmur appreciated. Equal 2+ pulses in radial and dorsalis pedis. Distant heart sounds. RESPIRATORY: No accessory muscle use. Clear to auscultation. Breath sounds equal bilaterally. No bibasilar rales. No rhonchi. No wheezing. GASTROINTESTINAL: Abdomen soft, non-tender, nondistended. Hepatic and splenic margins not palpable. No pulsatile mass palpable. MUSCULOSKELETAL: No obvious deformities. No clubbing. No cyanosis. No edema. NEUROLOGICAL: Awake and alert. No obvious cranial nerve deficits. Motor grossly within normal limits. Normal speech. PSYCHIATRIC: Appropriate mood and affect; insight and judgment normal. Course Reevaluation(s) Reevaluation #1: Patient stable in the ED. Rested quietly on stretcher throughout stay with no further complaints. I was able to stand patient up from bed and I watched him ambulate with a steady gait while using a single cane. There is no evidence of truncal ataxia. 1244 informed family of findings and plan for admission given that patient is [place] syncope rule positive (in setting of his CHF and abnormal ECG) the family and the patient are agreeable with plan. Time: 00:44 Consultations Consultation #1: [facility] medicine (Vladimir): discussed case at [id number] and explained my concern that patient had syncopal event in setting of history of CHF. He thinks that patient can likely be discharged home in the morning after evaluation by Dr Richmond. He recommends admitting patient for evaluation by Dr Richmond. Initial Documented Vital Signs Temperature 98.5 F 12/07/17 20:02 Pulse Rate 85 12/07/17 20:02 Respiratory Rate 18 12/07/17 20:02 Blood Pressure 190/74 H 12/07/17 20:02 Pulse Oximetry 96 12/07/17 20:02 Last Documented Vital Signs Temperature 98.5 F 12/07/17 20:02 Pulse Rate 70 12/07/17 22:05 Respiratory Rate 18 12/07/17 22:05 Blood Pressure 188/91 H 12/07/17 22:05 Pulse Oximetry 97 12/07/17 22:05 Medical Decision Making MDM Narrative Medical decision making narrative: Given that the patient had a probable syncopal episode and he meets [place] syncope rule criteria I believe that admission is most appropriate in this setting. He did not describe any chest pain nor anginal equivalents that might suggest ACS. Did not appear to be in respiratory distress. Head no signs or symptoms of stroke. Given his age will perform CT of head to rule out intracranial bleed. He has no midline cervical tenderness, is able to rotate his neck greater than 60 left and right , and has no paresthesias in the upper extremities nor any focal neurological deficits; I think CT cervical spine is lower yield in this case given that the patient can provide a reliable report of his symptoms and is not intoxicated. Differential Diagnosis Differential Diagnosis: Head bleed versus concussion versus mild TBI versus ACS versus acute CHF versus pneumonia versus electrolyte disorder. Medical Records Medical records reviewed: Yes I reviewed the patient's medical records. Multiple ED visits and hospital admissions over the past several years as recorded in the hospital record however none particularly pertinent to the patient's current chief complaint today. His most recent visit was for a shingles outbreak on his back. Lab Data Lab results reviewed: Yes I reviewed the patient's lab results. Lab results narrative: Troponin negative electrolytes and CBC unremarkable mild abnormalities that are not diagnostic for patient's chief complaint of syncope. Result diagrams: 12/07/17 21:45 12/07/17 21:45 Lab Results 12/07/17 12/07/17 12/07/17 Range/Units 21:45 21:45 21:45 CBC w Diff Auto diff final WBC 6.5 (4.0-11.0) th/mm3 RBC 4.94 (4.50-5.90) mil/mm3 Hgb 14.4 (13.0-17.0) gm/dL Hct 42.4 (39.0-51.0) % MCV 85.7 (80.0-100.0) fL MCH 29.1 (27.0-34.0) pg MCHC 34.0 (32.0-36.0) % RDW 13.9 (11.6-17.2) % Plt Count 177 (150-450) th/mm3 MPV 8.5 (7.0-11.0) fL Neut % (Auto) 75.2 H (16.0-70.0) % Lymph % (Auto) 15.4 (9.0-44.0) % [place] % (Auto) 6.2 (0.0-8.0) % Eos % (Auto) 2.6 (0.0-4.0) % Baso % (Auto) 0.6 (0.0-2.0) % Neut # (Auto) 4.9 (1.8-7.7) th/mm3 Lymph # (Auto) 1.0 (1.0-4.8) th/mm3 [place] # (Auto) 0.4 (0.0-0.9) th/mm3 Eos # (Auto) 0.2 (0.0-0.4) th/mm3 Baso # (Auto) 0.0 (0.0-0.2) th/mm3 WBC Differential . Differential Comment . Sodium 139 (136-145) meq/L Potassium 4.0 (3.5-5.1) meq/L Chloride 102 (98-107) meq/L Carbon Dioxide 34.2 H (21.0-32.0) meq/L Anion Gap 3 L (5-15) meq/L BUN 17 (7-18) mg/dL Creatinine 0.84 (0.60-1.30) mg/dL Estimated GFR 87 L (>89) mL/min Random Glucose 100 (74-106) mg/dL Calcium 8.7 (8.5-10.1) mg/dL Total Bilirubin 0.4 (0.2-1.0) mg/dL AST 19 (15-37) U/L ALT 24 (12-78) U/L Alkaline Phosphatase 123 H (45-117) U/L Lactate Dehydrogenase 174 (87-241) U/L Troponin I Less than 0.02 L (0.02-0.05) ng/mL B-Natriuretic Peptide 105 H (0-100) pg/mL Total Protein 7.1 (6.4-8.2) g/dL Albumin 3.7 (3.4-5.0) g/dL Imaging Data Radiologist's impression: Chest X-Ray 12/07/17 21:12 CONCLUSION: Mild bibasilar airspace disease characteristic of atelectasis. Otherwise stable chest with no other evidence of acute process. Head CT 12/07/17 21:12 CONCLUSION: Stable noncontrast head CT. No acute intracranial abnormality is identified. ECG Data EKG Prior to Arrival: No Attestation: I personally reviewed and interpreted this ECG as follows: Interpretation: Normal sinus rhythm with sinus arrhythmia, rate 68 bpm, W[place] interval 200 ms which is prolonged, QRS duration 117 which is moderately prolonged but still narrow rhythm, QTc interval 434 ms, no significant ST depression or elevation, not a STEMI Discharge Plan Discharge Disposition Patient Disposition: 30 Still Patient Physicians Team ED Provider: Wesley Penny Primary Care Provider: Kvng Yoon Rxs /Orders / Referrals /Forms Prescriptions: No Action tramadol 50 mg Tablet 50 mg PO QID RF: 0 meclizine 12.5 mg Tablet 25 mg PO DAILY PRN (Reason: Vertigo) RF: 0 Discharge Interventions Interventions: Vital Signs Last Done: 12/07/17 22:05 Status ED Status: With Doctor
--- NOTE | 2017-12-07 21:42 | XR ---
EXAM DATE: 12/07/2017 9:38 PM EDT AGE/SEX: 87 years / Male INDICATIONS: Short of breath. Syncopal episode this evening. CLINICAL DATA: This is the patient's initial encounter. Patient reports that signs and symptoms have been present for 1 day and indicates a pain score of 0/10. MEDICAL/SURGICAL HISTORY: Congestive heart failure. Cholecystectomy. COMPARISON: [facility], XR CHEST PA AND LAT, 08/19/2017. . FINDINGS: Minimal airspace disease characteristic of atelectasis is identified in the lung bases. There is no l oss of consolidating airspace disease mass densities or effusions. Heart and mediastinal structures are stable. CONCLUSION: Mild bibasilar airspace disease characteristic of atelectasis. Otherwise stable chest with no other evidence of acute process. Electronically signed by: Jose Bonilla MD 12/07/2017 9:40 PM EDT
[2017-12-07 21:56] LABS: Baso % (Auto) 0.6 % (0.0-2.0); Eos # (Auto) 0.2 th/mm3 (0.0-0.4); Eos % (Auto) 2.6 % (0.0-4.0); Hematocrit 42.4 % (39.0-51.0); Hemoglobin 14.4 gm/dL (13.0-17.0); Lymph % (Auto) 15.4 % (9.0-44.0); Mean Corpuscular Hemoglobin 29.1 pg (27.0-34.0); Mean Corpuscular Volume 85.7 fL (80.0-100.0); Mean Platelet Volume 8.5 fL (7.0-11.0); Mono # (Auto) 0.4 th/mm3 (0.0-0.9); Mono % (Auto) 6.2 % (0.0-8.0); Neut # (Auto) 4.9 th/mm3 (1.8-7.7); Neut % (Auto) 75.2 % (16.0-70.0); Platelet Count 177 th/mm3 (150-450); Red Blood Count 4.94 mil/mm3 (4.50-5.90); Red Cell Distribution Width 13.9 % (11.6-17.2); White Blood Count 6.5 th/mm3 (4.0-11.0)
[2017-12-07 22:04] LABS: Chloride 102 meq/L (98-107); Sodium 139 meq/L (136-145)
[2017-12-07 22:06] LABS: Calcium 8.7 mg/dL (8.5-10.1)
[2017-12-07 22:07] LABS: Albumin 3.7 g/dL (3.4-5.0); Anion Gap 3 meq/L (5-15); Blood Urea Nitrogen 17 mg/dL (7-18); Carbon Dioxide 34.2 meq/L (21.0-32.0); Glucose,Random 100 mg/dL (74-106)
[2017-12-07 22:10] LABS: Alanine Aminotransferase 24 U/L (12-78); Aspartate Aminotransferase 19 U/L (15-37); Glomerular Filtration Rate 87 mL/min (>89)
[2017-12-07 22:12] LABS: Total Protein 7.1 g/dL (6.4-8.2)
[2017-12-07 22:13] LABS: Alkaline Phosphatase 123 U/L (45-117)
--- NOTE | 2017-12-07 23:07 | CT ---
EXAM DATE: 12/07/2017 10:56 PM EDT AGE/SEX: 87 years / Male INDICATIONS: Syncopal episode, altered mental status post fall. CLINICAL DATA: This is the patient's initial encounter. Patient reports that signs and symptoms have been present for 1 day and indicates a pain score of 0/10. MEDICAL/SURGICAL HISTORY: Hypertension. Vertigo. None. RADIATION DOSE: 53.11 CTDI (mGy) COMPARISON: [facility] [place], CT BRAIN W/O CONTRAST, 10/06/2014. . TECHNIQUE: CT of the head without contrast. Using automated exposure control and adjustment of the mA and/or kV according to patient size, radiation dose was kept as low as reasonably achievable to ob tain optimal diagnostic quality images. DICOM format image data is available electronically for revi ew and comparison. FINDINGS: Cerebrum: There is mild generalized atrophy and ventricles are normal given the degree of atrophy. M ild periventricular white matter change is present. No midline shift, mass lesion, hemorrhage or acu te infarction. No extraaxial fluid collections are seen. Posterior Fossa: The cerebellum and brainstem demonstrate no acute abnormality. The 4th ventricle is midline. The cerebellopontine angle is within normal limits. Extracranial: The visualized sinuses are clear. Skull: The calvaria is intact. No skull fracture. CONCLUSION: Stable noncontrast head CT. No acute intracranial abnormality is identified. Electronically signed by: Sae Contreras MD 12/07/2017 11:06 PM EDT
[2017-12-08 00:30] LABS: Lactate Dehydrogenase 174 U/L (87-241)
--- NOTE | 2017-12-08 07:10 | P.HP ---
History of Present Illness Service: [facility] adult medicine service Primary Care Physician: Kvng Yoon MD Chief Complaint: Status post fall with loss of consciousness History of Present Illness: 87-year-old male who presents after a possible syncopal event that occurred at 1900 on December 07, yesterday. His daughter witnessed him fall backwards without tripping while standing in the grass shortly after he exited the backseat of a car. Although there was no loss of consciousness immediately after the fall the patient does not remember any of the events immediately leading up to the fall or the fall itself. Patient is however able to tell me that they were celebrating his 's birthday yesterday and when they arrived at the birthday green party he was getting out of the car he reached back to get his cane. He believes that he actually had his cane when he got out of the car and then he fell backwards onto the grass. Thankfully he did not hit his head on concrete. Patient volunteers that he may have stepped off some uneven pavement or sidewalk or curbing but he is not sure of this. After being helped up off the ground he walked into the house with minimal assistance although his daughter notes that his gait was somewhat unstable at that time. He sat in a chair for about half an hour to 45 minutes and his daughter noted that he exhibited short- term memory loss as well as repetitive questioning. Patient denies any pain; no chest pain no neck or back pain and no pain in his joints or extremities other than his typical arthritis pain. He describes having a chronic daily headache that has been present for the past 20 years however it is not worse than usual at this time. He sustained a superficial skin tear of the left forearm. He has a history of congestive heart failure but this is more of a diastolic dysfunction as his EF has been around 50-55%. He is compliant with his medications. However he notes that he took double his typical dose of meclizine (25 mg rather than 12.5 mg) both yesterday and today. Patient denies any sensation of dizziness or vertigo either at the time of the fall or now. Per ER provider the family did not observe any signs or symptoms of stroke; no slurred speech, no facial droop, no unilateral arm or leg weakness, no numbness or tingling in extremities, no trouble swallowing. There was no seizure activity observed. No tongue biting. No loss of bowel or bladder function. No new visual complaints. Patient seems to have recovered to his baseline at time of my interview this morning. There was no chest pain or heart palpitations. Patient was not short of breath. It is noted that patient has had multiple falls over the last year and a half. He reports that he has somewhat of a major fall every 4-5 months. He reports that he typically falls forward or to the side and that he is not fallen backwards like this before. His primary care physician referred him to physical therapy regarding these falls in October however patient had an outbreak of shingles and lost the physical therapist phone number. Hence he did not attend any physical therapy sessions. Patient does use a cane and walker at home. Tends to use the walker if he has to go longer distances of more than 50 yards. It is additionally noted on outpatient review the patient had a Lexiscan stress test done September 14 this year which demonstrated a basal to mid inferior infarct pattern with out any new evidence of ischemia or insult. EF was 47% calculated. EF was around 55% on echo done in 2016 which demonstrated mild to moderate mitral regurgitation. - Diagnosis (1) Fall (2) Diastolic CHF with preserved left ventricular function, NYHA class 2 (3) High cholesterol (4) Hypertension (5) Vertigo Review of Systems Constitutional: Denies anorexia, Denies body ache(s), Denies chills, Denies daytime sleepiness, Denies excessive sweating, Denies fatigue, Denies fever(s), Denies headache(s), Denies increased appetite, Denies lack of energy, Denies malaise, Denies night sweats, Denies weakness, Denies weight gain, Denies weight loss, Denies other Eyes: Reports blurry vision Cardiovascular: Denies chest pain, Denies chest pain at rest, Denies chest pain with activity, Denies excessive sweating, Denies fainting, Denies fast heart rate, Denies foot swelling, Denies generalized swelling, Denies irregular heart rhythm, Denies leg pain with activity, Denies leg sores, Denies leg swelling, Denies lightheadedness, Denies radiating jaw, neck or arm pain, Denies rapid, pounding, or irregular heartbeat, Denies shortness of breath, Denies shortness of breath with activity, Denies shortness of breath when lying down, Denies shortness of breath causing sudden awakening, Denies slow heart rate, Denies other Respiratory: Denies change in phlegm color, Denies chest congestion, Denies cough, Denies coughing up blood, Denies excessive phlegm production, Denies pain on inspiration, Denies pain with cough, Denies shortness of breath, Denies shortness of breath with activity, Denies snoring, Denies stridor, Denies wheezing, Denies other Musculoskeletal: Reports abnormal walking, Reports back pain, Reports joint pain , Reports muscle weakness, Denies body aches, Denies decreased muscle mass, Denies deformity, Denies joint swelling, Denies limited joint movement, Denies loss of height, Denies muscle cramps, Denies neck pain, Denies numbness, Denies radiating pain into limb, Denies stiffness, Denies tingling, Denies other Neurologic: Reports frequent falls Psychiatric: Denies abnormal sleep pattern, Denies anxiety, Denies behavioral changes, Denies change in appetite, Denies change in sex drive, Denies confusion , Denies depression, Denies difficulty concentrating, Denies hearing things others do not hear, Denies hopelessness, Denies irritability, Denies lack of enjoyment, Denies memory loss, Denies mood swings, Denies panic attacks, Denies paranoia, Denies seeing things others do not see, Denies sensing things others do not sense, Denies tactile hallucinations, Denies thoughts of hurting/killing others, Denies thoughts of hurting/killing yourself, Denies other Hematologic/Lymphatic: Reports easy bruising PMFSH - History History Provided By: Patient, Entry Level Financial Analyst / EMT - Medical History Medical History: Medical History (Last Updated 12/08/17 @ 06:56 by Harmeet Becker MD, PhD) Anxiety Arthritis Coronary artery disease Diastolic CHF with preserved left ventricular function, NYHA class 2 High cholesterol Hypertension Vertigo Vitamin D deficiency - Surgical History Surgical History: Surgical History (Last Reviewed 12/08/17 @ 00:41 by Wesley Penny MD) Hx of cholecystectomy Hx of tonsillectomy - Tobacco History Second Hand Smoke Exposure: No Tobacco Use In Past 30 Days: No Smoking Status: Former smoker Packs Per Day: 1 Years Smoked: 10 Smoking End Date: - Alcohol History How Often Do You Have a Drink Containing Alcohol: Monthly or less - Substance Use History Substance History: No History of Abuse - Travel History Recent Travel in the [place] Within the Last 8 Weeks: No Recent Travel Out of the Country Within the Last 8 Weeks: No - Immunization History Tetanus Immunization: <5 Years Hx Influenza Vaccine This Season: Yes Medications and Allergies Active Medications: Active Medications Sodium Chloride (Ns Flush) 2 ml IV.FLUSH PRN PRN PRN Reason: FLUSH AFTER USING IV ACCESS Allergies Allergy/AdvReac Type Severity Reaction Status Date / Time No Known Allergies Allergy Verified 12/07/17 20:02 Home Medications Medication Instructions Recorded Confirmed Type meclizine 25 mg PO DAILY PRN 12/07/17 12/07/17 History tramadol 50 mg PO QID 12/07/17 12/07/17 History aspirin [Adult Low Dose Aspirin] 81 mg PO DAILY 12/08/17 12/08/17 History carvedilol 12.5 mg PO BID 12/08/17 12/08/17 History chlordiazepoxide HCl 10 mg PO DAILY 12/08/17 12/08/17 History diclofenac sodium 75 mg PO BID PRN 12/08/17 12/08/17 History ergocalciferol (vitamin D2) 50,000 units PO 2XWEEK 12/08/17 12/08/17 History [Vitamin D2] fluticasone [Flovent HFA] 1 puff INHALATION BID 12/08/17 12/08/17 History lisinopril 20 mg PO DAILY 12/08/17 12/08/17 History paroxetine HCl 20 mg PO DAILY 12/08/17 12/08/17 History ranitidine HCl 150 mg PO BID 12/08/17 12/08/17 History simvastatin 40 mg PO QPM 12/08/17 12/08/17 History tamsulosin 0.4 mg PO DAILY 12/08/17 12/08/17 History tramadol 50 mg PO Q6H PRN 12/08/17 12/08/17 History Exam Vital signs: Vital Signs 12/07/17 20:02 12/07/17 21:48 12/07/17 22:05 Temperature 98.5 F Pulse Rate 85 80 70 Respiratory Rate 18 18 Blood Pressure 190/74 H 188/91 H Pulse Oximetry 96 96 97 12/08/17 02:00 12/08/17 04:21 12/08/17 06:23 Temperature Pulse Rate 70 68 69 Respiratory Rate 18 18 18 Blood Pressure 180/91 H 184/80 H 178/85 H Pulse Oximetry 97 96 96 Intake & Output 12/07/17 12/07/17 12/08/17 06:59 18:59 06:59 Weight 90.718 kg Narrative: GENERAL: Awake and alert. Quite pleasant. Oriented to person place and time and situation. SKIN: Warm and dry. Left lateral forearm with small skin avulsion and hematoma. Slight hyperpigmentation along right lateral chest which coincides with reported recent shingles outbreak. No vesicles. HEAD: Atraumatic. Normocephalic. EYES: Pupils equal and round. No scleral icterus. No injection or drainage. ENT: No nasal bleeding or discharge. Mucous membranes pink and moist. NECK: Trachea midline. No JVD. Full range of motion. No bruit. CARDIOVASCULAR: Regular rate and rhythm with an occasional extra systole. No significant murmur appreciated. RESPIRATORY: No accessory muscle use. Clear to auscultation. Breath sounds equal bilaterally. GASTROINTESTINAL: Abdomen soft, non-tender, nondistended. Hepatic and splenic margins not palpable. MUSCULOSKELETAL: Extremities without clubbing, cyanosis, or edema. No obvious deformities. Skin tear left forearm as noted above. Osteoarthritic changes in hands and feet. NEUROLOGICAL: Awake and alert. No obvious cranial nerve deficits. Motor grossly within normal limits. Five out of 5 muscle strength in the arms and legs. Normal speech. Moves all extremities to command. No tremor. PSYCHIATRIC: Appropriate mood and affect; insight and judgment normal. Results - Labs CBC & Chem 7: 12/07/17 21:45 12/07/17 21:45 Labs: Laboratory Results - last 24 hr 12/07/17 12/07/17 12/07/17 21:45 21:45 21:45 CBC w Diff Auto diff final WBC 6.5 RBC 4.94 Hgb 14.4 Hct 42.4 MCV 85.7 MCH 29.1 MCHC 34.0 RDW 13.9 Plt Count 177 MPV 8.5 Neut % (Auto) 75.2 H Lymph % (Auto) 15.4 Sterling % (Auto) 6.2 Eos % (Auto) 2.6 Baso % (Auto) 0.6 Neut # (Auto) 4.9 Lymph # (Auto) 1.0 Sterling # (Auto) 0.4 Eos # (Auto) 0.2 Baso # (Auto) 0.0 WBC Differential . Differential Comment . Sodium 139 Potassium 4.0 Chloride 102 Carbon Dioxide 34.2 H Anion Gap 3 L BUN 17 Creatinine 0.84 Estimated GFR 87 L Random Glucose 100 Calcium 8.7 Total Bilirubin 0.4 AST 19 ALT 24 Alkaline Phosphatase 123 H Lactate Dehydrogenase 174 Troponin I Less than 0.02 L B-Natriuretic Peptide 105 H Total Protein 7.1 Albumin 3.7 - Imaging Impressions Chest X-Ray 12/07/17 21:12 CONCLUSION: Mild bibasilar airspace disease characteristic of atelectasis. Otherwise stable chest with no other evidence of acute process. Head CT 12/07/17 21:12 CONCLUSION: Stable noncontrast head CT. No acute intracranial abnormality is identified. Caprini VTE Risk Assessment Caprini VTE Risk Assessment: Moderate/High Risk (score >= 2) Caprini Risk Assessment Model: Point Value = 1 Point Value = 2 Point Value = 3 Point Value = 5 Age 41-60 Minor surgery BMI > 25 kg/m2 Swollen legs Varicose veins or History of unexplained or recurrent spontaneous Oral contraceptives or hormone replacement Sepsis (< 1 month) Serious lung disease, including pneumonia (< 1 month) Abnormal pulmonary function Acute myocardial infarction Congestive heart failure (< 1 month) History of inflammatory bowel disease Medical patient at bed rest Age 61-74 Arthroscopic surgery Major open surgery (> 45 min) Laparoscopic surgery (> 45 min) Malignancy Confined to bed (> 72 hours) Immobilizing plaster cast Central venous access Age >= 75 History of VTE Family history of VTE Factor V Leiden Prothrombin [id number] Lupus anticoagulant Anticardiolipin antibodies Elevated serum homocysteine Heparin-induced thrombocytopenia Other congenital or acquired thrombophilia Stroke (< 1 month) Elective arthroplasty Hip, pelvis, or leg fracture Acute spinal cord injury (< 1 month) Prophylaxis Regimen: Total Risk Factor Score Risk Level Prophylaxis Regimen 0-1 Low Early ambulation 2 Moderate Order ONE of the following: *Sequential Compression Device (SCD) *Heparin 5000 units SQ BID 3-4 Higher Order ONE of the following medications: *Heparin 5000 units SQ TID *Enoxaparin/Lovenox 40 mg SQ daily (WT < 150 kg, CrCl > 30 mL/min) *Enoxaparin/Lovenox 30 mg SQ daily (WT < 150 kg, CrCl > 10-29 mL/min) *Enoxaparin/Lovenox 30 mg SQ BID (WT < 150 kg, CrCl > 30 mL/min) AND/OR *Sequential Compression Device (SCD) 5 or more Highest Order ONE of the following medications: *Heparin 5000 units SQ TID (Preferred with Epidurals) *Enoxaparin/Lovenox 40 mg SQ daily (WT < 150 kg, CrCl > 30 mL/min) *Enoxaparin/Lovenox 30 mg SQ daily (WT < 150 kg, CrCl > 10-29 mL/min) *Enoxaparin/Lovenox 30 mg SQ BID (WT < 150 kg, CrCl > 30 mL/min) AND *Sequential Compression Device (SCD) Assessment and Plan - Assessment (1) Fall Code(s): W19.XXXA - Unspecified fall, initial encounter Status: Acute Plan: Seems to be a chronic recurring issue over the last year to year and a half. Given his exam this morning and recent negative stress test, I do not strongly believe that there is a cardiac etiology to recent fall. His peripheral sensations to light touch seemed to be intact. He has no focal neurologic deficits on exam will have physical therapy see the patient today for gait training. He will continue to use assistive devices needed. Fall precautions. Will check carotid ultrasound although likely not that useful of the tool at this point. Patient's post fall confusion which has cleared is likely associated with mild concussive syndrome. (2) Diastolic CHF with preserved left ventricular function, NYHA class 2 Code(s): I50.30 - Unspecified diastolic (congestive) heart failure Status: Acute Plan: Ejection fraction has been relatively well preserved. No signs of overt failure. Continue home medications. (3) High cholesterol Code(s): E78.00 - Pure hypercholesterolemia, unspecified Status: Acute Plan: Continue medications. (4) Hypertension Code(s): I10 - Essential (primary) hypertension Status: Acute Plan: Continue medications. (5) Vertigo Code(s): R42 - Dizziness and giddiness Status: Acute Plan: Chronic issue. Continue home meclizine. Physical therapy evaluation. - Plan Discussed Condition With: Patient and ER provider. Discharge Planning: Hopefully discharge home later today. (4) Hypertension Qualifiers: Hypertension type: essential hypertension Qualified Code(s): I10 - Essential (primary) hypertension
[2017-12-08] MEDS ORDERED: Famotidine 20 MG Tablet PO SCH (09:00)
[2017-12-08] MEDS ORDERED: Carvedilol 12.5 MG Tablet PO SCH (09:00)
[2017-12-08] MEDS ORDERED: Lisinopril 20 MG Tablet PO SCH (09:00)
--- NOTE | 2017-12-08 11:06 | US ---
EXAM DATE: 12/08/2017 10:48 AM EDT AGE/SEX: 87 years / Male INDICATIONS: Syncope. CLINICAL DATA: This is the patient's initial encounter. Patient reports that signs and symptoms have been present for 2 days and indicates a pain score of 0/10. MEDICAL/SURGICAL HISTORY: Arthritis. Congestive heart failure. Hypercholesterolemia. Coronar y artery disease. Hypertension. Vertigo. Vitamin D deficiency. Cholecystectomy. Tonsillectomy. COMPARISON: No prior exams available for comparison. VELOCITY PARAMETERS: ICA/CCA Ratio: Right 1.4 , Left 1.7 ICA: Right 89 cm/sec, Left 109 cm/sec CCA: Right 64 cm/sec, Left 64 cm/sec ECA: Right 104 cm/sec, Left 116 cm/sec Vertebral: Right 46 cm/sec antegrade, Left 48 cm/sec antegrade FINDINGS: Right Carotid: Mild arteriosclerotic plaque is visualized.The waveforms are within normal limits. Left Carotid: Moderate arteriosclerotic plaque is visualized. The waveforms are within normal limits . Other: None. CONCLUSION: Mild plaque right carotid bifurcation. Moderate to severe plaque left carotid bifurcation. PSV ratio on the left is characteristic of a mild to moderate focal stenosis at the left carotid bifurcation. E xact degree and location of stenosis could be better evaluated with CTA carotids. Electronically signed by: Piyush Sin MD 12/08/2017 11:05 AM EDT
[2017-12-08 12:38] VITALS: O2SAT 94
--- NOTE | 2017-12-08 14:33 | ECG ---
Date Performed: 12/07/2017 Time Performed: 21:24:21 PTAGE: 87 years EKG: Sinus rhythm WITH OCCASIONAL SUPRAVENTRICULAR PREMATURE COMPLEXES MODERATE INTRAVENTRICULAR CONDUCTION DELAY BORD DEREK ECG Since the PREVIOUS TRACING , no significant change noted PREVIOUS TRACIN03/10/2017 02.06 DOCTOR: Gianluca Gonzalez Interpretating Date/Time 12/08/2017 14:31:38
--- NOTE | 2017-12-08 14:42 | P.PNADD ---
Addendum to Inpatient Note Reason for Addendum: Additional Documentation Additional information: Spoke with patient and reviewed PT notes as well as carotid ultrasound results. Patient and his family manor with prefer to go ahead and have CTA carotids done here. Will order that for today. Hopefully will be done later today and we probably could still get him out later tonight. He is asymptomatic presently but still a fall risk obviously.
[2017-12-08 16:30] VITALS: BP 148/70; PULSE 74; TEMP 97.1
--- NOTE | 2017-12-08 16:40 | CT ---
EXAM DATE: 12/08/2017 4:22 PM EDT AGE/SEX: 87 years / Male INDICATIONS: Carotid stenosis. Abnormal ultrasound. CLINICAL DATA: This is the patient's initial encounter. Patient reports that signs and symptoms have been present for 2 days and indicates a pain score of 0/10. MEDICAL/SURGICAL HISTORY: Congestive heart failure. Hypertension. Cholecystectomy. RADIATION DOSE: 42.06 CTDI (mGy) COMPARISON: No prior exams available for comparison. TECHNIQUE: Volumetric scanning was performed using a multirow detector CT scanner during bolus infus ion of 75 ml Omnipaque 350 (iohexol) nonionic water-soluble contrast as a single exam dose. The da ta was postprocessed with a variety of visualization algorithms including full-volume maximum intensi ty projection, multiplanar sliding thin-slab reformation, curved-planar reformation, and surface-rend ering techniques. Using automated exposure control and adjustment of the mA and/or kV according to p atient size, radiation dose was kept as low as reasonably achievable to obtain optimal diagnostic ml lity images. DICOM format image data is available electronically for review and comparison. FINDINGS: Aortic Arch: There is a three-vessel origin of the great vessels from the aorta. No evidence of ost ial narrowing Right Carotid: Eccentric calcified plaque involving the ICA origin without ulceration. Utilizing IRIS CET criteria this generates a 20% and no cysts. The more cephalad portion of the extracranial ICA is mildly tortuous but patent. The ECA and CCA are patent.. Left Carotid: Calcified atherosclerotic plaque is seen involving the carotid bulb extending into the ICA and ECA origins. Utilizing NASCET criteria there is a 40% stenosis involving the ICA origin. The CCA and ECA are patent. The more cephalad portion of the extracranial ICA is mildly tortuous but pat ent. Vertebrals: The vertebral arteries have a symmetric diameter. No stenotic lesions are seen. A degenerative cervical spine. Percent stenosis is calculated using the diameter of the stenotic region over the diameter of the nor mal distal internal carotid artery. CONCLUSION: 1. 40% stenosis the left ICA origin and 20% stenosis of the right ICA origin secondary to calcified plaque. 2. Vertebral arteries are patent bilaterally. Electronically signed by: Terrance Mcnair MD 12/08/2017 4:39 PM EDT
--- NOTE | 2017-12-08 17:07 | P.DCO ---
- Physical Therapy Order: Evaluate and treat, Improve ambulation, Strength and gait training - Home Health Nursing Order: Signs/symptoms of disease process, CHF education - Case Management Consult No - Certification I have seen patient Akhil Light on 12/08/17. My clinical findings support the need for the requested home health care services because: Limited mobility due to disease progression, High risk of falls I certify that my clinical findings support that this patient is homebound because: Unsteady gait/balance
== END 2017-12-08 18:18 | disposition home health service (06) ==
LOC: PHED 19:53 → PH3 19:53 → PHEDA 19:53 → PHEDH 12-08 06:12 → PH3 12-08 09:05
PROVIDERS: ADMIT Legal Medicine; ATTEND Legal Medicine